=== PATIENT | female | born 1930 | race Caucasian/White ===

== ENCOUNTER → 2018-02-27 | Outpatient (CLI) | payer MEDICARE, MEDICAID ==
[~2018-02-27] MED LIST: ASPIR LOW81 MG PO; COLACE100 MG PO; FEOSOL300 MG PO; FORTAMET1000 MG PO; HUMALOG100 U/ML SC; LISINOPRIL10 MG PO; MOM30 M1 PO; MULTIVITAMIN1 CTB PO; Micro K10 MEQ PO; PRO-BIOTIC PO; PROTONIX40 MG PO; SIMVASTATIN10 MG PO; SIMVASTATIN20 MG PO; VITAMIN D1000 IU PO; Vicodin 5/325 PO
== END | disposition home or self-care (01) ==
LOC: ORTHO 02-22 05:02
DX: M21.061 Valgus deformity, not elsewhere classified, right knee (principal); M17.11 Unilateral primary osteoarthritis, right knee; D48.0 Neoplasm of uncertain behavior of bone and articular cartilage

== ENCOUNTER 2018-03-16 12:30 | Emergency (ER) | payer MEDICARE, MEDICAID ==
[~2018-03-16] VITALS: Ht 157.4 cm; Wt 77.1 kg
[2018-03-16 12:31] VITALS: BP 150/74
== END 2018-03-16 15:43 | disposition home or self-care (01) ==
LOC: ED 12:30
DX: S60.221A Contusion of right hand, initial encounter (principal); S00.81XA Abrasion of other part of head, initial encounter; S39.92XA Unspecified injury of lower back, initial encounter; M19.90 Unspecified osteoarthritis, unspecified site; M48.00 Spinal stenosis, site unspecified; Z98.890 Other specified postprocedural states; Z79.899 Other long term (current) drug therapy; Z79.82 Long term (current) use of aspirin; Z88.0 Allergy status to penicillin; Z88.2 Allergy status to sulfonamides; W19.XXXA Unspecified fall, initial encounter; Y93.89 Activity, other specified; Y92.89 Other specified places as the place of occurrence of the external cause; Y99.9 Unspecified external cause status

== ENCOUNTER 2018-06-04 11:14 | Inpatient (IN) | payer MEDICARE ==
[~2018-06-04] VITALS: Ht 157.5 cm; Wt 72.7 kg
--- NOTE | ~2018-06-04 | EKG ---
[place], [place] ELECTROCARDIOGRAM REPORT NAME: BURT ANGULO UNIT #: [id number] ROOM: 526 DOCTOR: EPIPHANY DRAFT REPORT BIRTHDATE: [birth year] [facility] Test Date: 2018-06-05 Test Time: 13:01:48 Pat Name: BURT ANGULO Department: Room: 526 1 Gender: F Editor In Chief: Sybil Araiza : 1930 Requested By: MIGUEL ANGEL GUERRA Order Number: [id number] Reading MD: Miguel Angel Guerra MD Measurements Intervals [place] Rate: 94 P: 80 MS: 194 QRS: -26 QRSD: 103 T: 69 QT: 373 QTc: 467 Interpretive Statements Sinus rhythm Borderline left axis deviation Anterior infarct, old Electronically Signed On 06-06-2018 7:55:38 PST by Miguel Angel Guerra MD CM:EKGRPT:ELECTROCARDIOGRAM REPORT [id number] MIGUEL ANGEL GUERRA MD EPIPHANY DRAFT REPORT MIGUEL ANGEL GUERRA MD
[2018-06-04 11:30] VITALS: BP 135/63
[2018-06-04 12:03] LABS: HEMATOCRIT 37.2 % (37.0-47.0); MEAN CELL VOLUME 92.1 fl (81.0-99.0); MEAN CORPUSCULAR HGB 29.7 pg (27.0-31.0); MEAN CORPUSCULAR HGB CONC 32.3 g/dl (33.0-37.0); MEAN PLATELET VOLUME 9.9 fl (9.6-12.3); PLATELET COUNT AUTOMATED 312 10*3/uL (130-400); RED BLOOD COUNT 4.04 10*6/uL (4.10-5.10); RED CELL DISTRI WIDTH 14.1 % (0-14.5); WHITE BLOOD COUNT 11.6 10*3/uL (4.8-10.8)
[2018-06-04 12:19] LABS: ALBUMIN 3.7 gm/dl (3.1-4.5); ALKALINE PHOSPHATASE 186 U/L (45-117); BUN 18 mg/dl (7-24); CHLORIDE 103 mmol/L (98-107); CREATININE 0.99 mg/dL (0.55-1.02); POTASSIUM 4.4 mmol/L (3.5-5.1); SGOT/AST 22 IU/L (3-35); SGPT/ALT 24 U/L (12-78); SODIUM 134 mmol/L (136-145); TOTAL PROTEIN 7.7 gm/dL (6.4-8.2)
[2018-06-04 12:21] LABS: ATYPICAL LYMPHS 1 % (0-0); BASOPHILS 1 % (0-1); PLATELET SUFFICIENCY NORMAL (NORMAL); TOTAL CELLS COUNTED 100 #CELLS
[2018-06-04 14:42] VITALS: BP 176/84
[2018-06-04 15:15] VITALS: BP 154/64
[2018-06-04 20:00] VITALS: BP 153/70
[2018-06-05] VITALS: BP 148/75
[2018-06-05 08:00] VITALS: BP 151/65
[2018-06-05 10:30] LABS: BILIRUBIN 1+ (NEGATIVE); BLOOD NEGATIVE (NEGATIVE); CLARITY SL CLOUDY (CLEAR); COLOR YELLOW (YELLOW); GLUCOSE NEGATIVE (NEGATIVE); KETONE 1+ (NEGATIVE); LEUKO ESTERASE NEGATIVE (NEGATIVE); NITRITE NEGATIVE (NEGATIVE); PH 5.5 (5.0-9.0); UROBILINOGEN 0.2 E.U./dl (0.2-1.0)
[2018-06-05 10:44] LABS: BACTERIA 2+; EPITHELIAL CELLS 15-20; MUCOUS 2+
[2018-06-05 12:00] VITALS: BP 142/73
[2018-06-05 16:00] VITALS: BP 154/81
[2018-06-05 20:00] VITALS: BP 150/71
[2018-06-06] VITALS: BP 140/75
[2018-06-06 08:00] VITALS: BP 142/66
[2018-06-06 12:00] VITALS: BP 136/62
[2018-06-06 16:00] VITALS: BP 168/74
[2018-06-06 20:00] VITALS: BP 151/64
[2018-06-07] VITALS: BP 123/50
[2018-06-07 07:00] LABS: BASO % 0.7 % (0.0-1.0); EOS # 0.4 10*3/uL (0.0-0.4); EOS % 7.3 % (1.0-4.0); HEMATOCRIT 33.7 % (37.0-47.0); HEMOGLOBIN 10.7 g/dl (12.0-16.0); LYMPH % 16.8 % (27.0-41.0); MEAN CELL VOLUME 91.1 fl (81.0-99.0); MEAN CORPUSCULAR HGB 28.9 pg (27.0-31.0); MEAN CORPUSCULAR HGB CONC 31.8 g/dl (33.0-37.0); MEAN PLATELET VOLUME 10.4 fl (9.6-12.3); MONO # 0.7 10*3/uL (0.1-1.0); MONO % 11.4 % (3.0-9.0); NEUT # 3.6 10*3/uL (2.3-7.9); NEUT % 63.1 % (47.0-73.0); PLATELET COUNT AUTOMATED 311 10*3/uL (130-400); WHITE BLOOD COUNT 5.8 10*3/uL (4.8-10.8)
[2018-06-07 07:23] LABS: CHLORIDE 106 mmol/L (98-107); POTASSIUM 4.1 mmol/L (3.5-5.1); SODIUM 138 mmol/L (136-145)
[2018-06-07 07:26] LABS: BUN 23 mg/dl (7-24); CREATININE 0.67 mg/dL (0.55-1.02)
[2018-06-07 08:00] VITALS: BP 153/84
[2018-06-07 12:00] VITALS: BP 135/63
[2018-06-07 16:00] VITALS: BP 185/77
[2018-06-07 18:22] VITALS: BP 144/70
[2018-06-07 20:00] VITALS: BP 175/69
[2018-06-08] VITALS: BP 162/81
[2018-06-08 08:00] VITALS: BP 159/74
[2018-06-08 12:00] VITALS: BP 176/79
[2018-06-08 16:00] VITALS: BP 152/67
== END 2018-06-08 17:32 | disposition other institution (70) | DRG 552 ==
LOC: ED 11:14 → 5E 14:29 → EDHOLD 14:29 → 5E 14:31
PROVIDERS: Emergency Medicine; Internal Medicine Nephrology
DX: M54.5 Low back pain (principal); N39.0 Urinary tract infection, site not specified; G89.29 Other chronic pain; I10 Essential (primary) hypertension; I27.20 Pulmonary hypertension, unspecified; Z66 Do not resuscitate; Z51.5 Encounter for palliative care; B96.4 Proteus (mirabilis) (morganii) as the cause of diseases classified elsewhere; E11.65 Type 2 diabetes mellitus with hyperglycemia; M40.46 Postural lordosis, lumbar region; M25.551 Pain in right hip; R26.2 Difficulty in walking, not elsewhere classified; M19.90 Unspecified osteoarthritis, unspecified site; D72.828 Other elevated white blood cell count; Z91.81 History of falling; Z88.0 Allergy status to penicillin; Z88.2 Allergy status to sulfonamides; Z79.899 Other long term (current) drug therapy

== ENCOUNTER 2019-03-22 07:33 | Inpatient (IN) | payer MEDICARE ==
[2019-03-22] VITALS (7 sets, daily range): BP systolic 106–146; BP diastolic 58–74
[~2019-03-22] VITALS: Ht 157.5 cm; Wt 69.6 kg
--- NOTE | ~2019-03-22 | EKG ---
[place], [place] ELECTROCARDIOGRAM REPORT NAME: BURT ANGULO UNIT #: [id number] ROOM: 511 DOCTOR: ARGENIS DRAFT REPORT BIRTHDATE: [birth year] [facility] Test Date: 2019-03-22 Test Time: 07:35:00 Pat Name: BURT ANGULO Department: Room: 511 Gender: F Community Engagement Specialist: : 1930 Requested By: JOSHUA JIMENES Order Number: [id number] Reading MD: Alberto Tran MD Measurements Intervals [place] Rate: 101 P: 0 AZ: 183 QRS: -23 QRSD: 127 T: 105 QT: 388 QTc: 503 Interpretive Statements Sinus tachycardia Left bundle branch block Compared to ECG 06/05/2018 13:01:48 Left bundle-branch block now present Sinus rhythm no longer present Myocardial infarct finding no longer present Electronically Signed On 03-22-2019 14:21:48 PDT by Alberto Tran MD CM:EKGRPT:ELECTROCARDIOGRAM REPORT [id number] JOSHUA JULEINANY DRAFT REPORT JOSHUA JIMENES DO
--- NOTE | ~2019-03-22 | EKG ---
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
--- NOTE | ~2019-03-22 | EKG ---
[place], [place] ELECTROCARDIOGRAM REPORT NAME: BURT ANGULO UNIT #: [id number] ROOM: 511 DOCTOR: ARGENIS DRAFT REPORT BIRTHDATE: [birth year] [facility] Test Date: 2019-03-22 Test Time: 12:10:25 Pat Name: BURT ANGULO Department: Room: 511 Gender: F Grain Blender: TL : 1930 Requested By: JOSHUA JIMENES Order Number: [id number] Reading MD: Alberto Tran MD Measurements Intervals [place] Rate: 91 P: 69 AZ: 209 QRS: -17 QRSD: 124 T: 70 QT: 400 QTc: 493 Interpretive Statements Sinus rhythm Borderline prolonged [place] interval Left bundle branch block Compared to ECG 06/05/2018 13:01:48 Left bundle-branch block now present Myocardial infarct finding no longer present Electronically Signed On 03-22-2019 14:22:44 PDT by Alberto Tran MD CM:EKGRPT:ELECTROCARDIOGRAM REPORT [id number] JOSHUA LADD DRAFT REPORT JOSHUA JIMENES DO
[2019-03-22 08:14] LABS: BASO % 0.2 % (0.0-1.0); EOS # 0.2 10*3/uL (0.0-0.4); EOS % 1.9 % (1.0-4.0); HEMATOCRIT 34.6 % (37.0-47.0); HEMOGLOBIN 11.4 g/dl (12.0-16.0); LYMPH # 0.4 10*3/uL (1.3-4.4); LYMPH % 4.5 % (27.0-41.0); MEAN CELL VOLUME 91.8 fl (81.0-99.0); MEAN CORPUSCULAR HGB 30.2 pg (27.0-31.0); MEAN CORPUSCULAR HGB CONC 32.9 g/dl (33.0-37.0); MEAN PLATELET VOLUME 10.1 fl (9.6-12.3); MONO # 0.5 10*3/uL (0.1-1.0); MONO % 5.5 % (3.0-9.0); NEUT # 7.3 10*3/uL (2.3-7.9); NEUT % 87.5 % (47.0-73.0); PLATELET COUNT AUTOMATED 246 10*3/uL (130-400); RED BLOOD COUNT 3.77 10*6/uL (4.10-5.10); RED CELL DISTRI WIDTH 14.2 % (0-14.5); WHITE BLOOD COUNT 8.4 10*3/uL (4.8-10.8)
[2019-03-22 08:29] LABS: ALBUMIN 3.5 gm/dl (3.1-4.5); ALKALINE PHOSPHATASE 67 U/L (45-117); BUN 21 mg/dl (7-24); CHLORIDE 107 mmol/L (98-107); CREATININE 0.84 mg/dL (0.55-1.02); POTASSIUM 3.7 mmol/L (3.5-5.1); SGOT/AST 9 IU/L (3-35); SGPT/ALT 12 U/L (12-78); SODIUM 138 mmol/L (136-145); TOTAL PROTEIN 6.8 gm/dL (6.4-8.2)
[2019-03-22 08:30] LABS: ACT PARTIAL THROMBO TIME 27.7 SECONDS (20.0-32.1); INTERNATIONAL NORM RATIO 0.9 (2.0-3.5); TROPONIN I < 0.015 ng/ml (<0.045)
--- NOTE | 2019-03-22 10:05 | NUR ---
PATIENT ARRIVED TO FLOOR VIA WHEELCHAIR, ON OWNER AND ROOM AIR, FROM ER ESCORTED BY RN. TRANSFERRED TO BED AMBULATORY WITH WALKER WITH ONE ASSIST. ALERT AND ORIENTED. ACCOMPAINED BY . ORIENTED TO ROOM AND CALL LIGHT. CALL LIGHT WITHIN REACH. RESIDENT PHYSICIANS AT BEDSIDE TO INTERVIEW PATIENT. WILL CONTINUE TO MONITOR,
--- NOTE | 2019-03-22 11:00 | NUR ---
DR. FELIPE NOTIFIED OF PATIENT ARRIVAL, MEDICATION RECONCILLIATION COMPLETION.
--- NOTE | 2019-03-22 11:35 | NUR ---
PHYSICAL THERAPY Nursing screen received. Physical therapy order received. Thank you! Annetta Benitez, PT,DPT
--- NOTE | 2019-03-22 12:46 | NUR ---
PHYSICAL THERAPY Physical therapy evaluation attempted, Pt refused PT services. Pt reports no PT needs at this time due to just completing 9 weeks of outpatient physical therapy. Discharge PT orders. Thank you Annetta Benitez, PT, DPT
--- NOTE | 2019-03-22 13:49 | NUR ---
INFORMED SIGNED CONSENT OBTAINED FOR LEXISCAN STRESS TEST WITH DR PARSONS. RESTING EKG LBBB SINUS TACHYCARDIA HR 100 BP 160/78. PT COMPLETED ONE MINUTE OF A LEXISCAN PROTOCOL WITH PT RECEIVING LEXISCAN 0.4MG IV OVER 10 SECONDS. PT REMAINED IN LBBB, NONDIAGNOSTIC ST CHANGES SEEN. LAST RECOVERY HR OF 112 BP 124/66. PT IN STABLE CONDITION, AWAITING NUCLEAR IMAGES.
--- NOTE | 2019-03-22 17:00 | NUR ---
FLU SHOT GIVEN AT THIS TIME IN RIGHT UPPER ARM WITHOUT INCIDENT
--- NOTE | 2019-03-22 20:00 | NUR ---
24 HOUR CHART CHECK COMPLETE.
[2019-03-23] VITALS: BP 115/53
[2019-03-23 06:53] LABS: BASO % 0.3 % (0.0-1.0); EOS # 0.1 10*3/uL (0.0-0.4); EOS % 0.6 % (1.0-4.0); HEMOGLOBIN 11.1 g/dl (12.0-16.0); LYMPH # 0.8 10*3/uL (1.3-4.4); LYMPH % 7.9 % (27.0-41.0); MEAN CELL VOLUME 90.4 fl (81.0-99.0); MEAN CORPUSCULAR HGB 29.5 pg (27.0-31.0); MEAN CORPUSCULAR HGB CONC 32.6 g/dl (33.0-37.0); MEAN PLATELET VOLUME 10.6 fl (9.6-12.3); MONO % 10.9 % (3.0-9.0); NEUT # 7.6 10*3/uL (2.3-7.9); NEUT % 80.2 % (47.0-73.0); PLATELET COUNT AUTOMATED 237 10*3/uL (130-400); RED BLOOD COUNT 3.76 10*6/uL (4.10-5.10); RED CELL DISTRI WIDTH 14.1 % (0-14.5); WHITE BLOOD COUNT 9.5 10*3/uL (4.8-10.8)
[2019-03-23 07:09] LABS: ALBUMIN 3.1 gm/dl (3.1-4.5); ALKALINE PHOSPHATASE 61 U/L (45-117); BUN 25 mg/dl (7-24); CHLORIDE 105 mmol/L (98-107); CHOLESTEROL 153 mg/dL (<200); POTASSIUM 3.6 mmol/L (3.5-5.1); SGOT/AST 7 IU/L (3-35); SGPT/ALT 10 U/L (12-78); SODIUM 138 mmol/L (136-145); TOTAL PROTEIN 6.5 gm/dL (6.4-8.2); TRIGLYCERIDES 64 mg/dl (<150); VLDL CHOLESTEROL 13 mg/dL (6-40)
[2019-03-23 07:16] LABS: CREATININE 0.81 mg/dL (0.55-1.02); FREE T4 1.19 ng/dl (0.76-1.46); HDL CHOLESTEROL 65 mg/dl (40-60); LDL CHOLESTEROL 75 mg/dL (9-159); THYROID STIM HORMONE (HS) 0.927 uIU/ml (0.358-4.75)
[2019-03-23] MEDS ORDERED: OMEPRAZOLE40 MG PO (08:54)
[2019-03-23 09:11] LABS: VITAMIN D, 25-HYDROXY 44.6 ng/mL (30-100)
== END 2019-03-23 11:20 | disposition home or self-care (01) | DRG 392 ==
LOC: ED 07:33 → EDHOLD 08:59 → 5E 09:12
PROVIDERS: Family Medicine; Internal Medicine; ADMIT Internal Medicine
PROC: 3E073KZ Introduction of Other Diagnostic Substance into Coronary Artery, Percutaneous Approach (ICD-10-PCS; principal; 2019-03-22)
PROC: 4A02XM4 Measurement of Cardiac Total Activity, External Approach (ICD-10-PCS; principal; 2019-03-22)
DX: K21.9 Gastro-esophageal reflux disease without esophagitis (principal); D64.9 Anemia, unspecified; I10 Essential (primary) hypertension; E78.5 Hyperlipidemia, unspecified; E11.65 Type 2 diabetes mellitus with hyperglycemia; Z66 Do not resuscitate; Z51.5 Encounter for palliative care; M54.9 Dorsalgia, unspecified; G89.29 Other chronic pain; Z88.0 Allergy status to penicillin; Z88.2 Allergy status to sulfonamides; Z79.82 Long term (current) use of aspirin; Z83.3 Family history of diabetes mellitus; Z80.9 Family history of malignant neoplasm, unspecified; Z79.84 Long term (current) use of oral hypoglycemic drugs

== ENCOUNTER 2019-04-22 15:42 | Inpatient (IN) | payer MEDICARE ==
[~2019-04-22] VITALS: Ht 157.4 cm; Wt 64.5 kg
--- NOTE | ~2019-04-22 | EKG ---
[place], [place] ELECTROCARDIOGRAM REPORT NAME: BURT ANGULO UNIT #: [id number] ROOM: 411 DOCTOR: ARGENIS DRAFT REPORT BIRTHDATE: [birth year] [facility] Test Date: 2019-04-22 Test Time: 17:05:26 Pat Name: BURT ANGULO Department: Room: 411 Gender: F Webbing Weaver: : 1930 Requested By: THIERRY ROBIN PA-C Order Number: [id number] Reading MD: Noreen Hawkins Measurements Intervals [place] Rate: 88 P: 67 CT: 197 QRS: -8 QRSD: 117 T: 85 QT: 429 QTc: 519 Interpretive Statements Sinus rhythm Nonspecific intraventricular conduction delay Probable anteroseptal infarct, recent Baseline wander in lead(s) I,aVR,aVL Compared to ECG 03/22/2019 16:51:04 Intraventricular conduction delay now present Myocardial infarct finding now present ST (T wave) deviation now present Atrial premature complex(es) no longer present Left bundle-branch block no longer present Electronically Signed On 04-24-2019 9:33:10 PST by Noreen Hawkins CM:EKGRPT:ELECTROCARDIOGRAM REPORT [id number] THIERRY ROBIN PA-C EPIPHANY DRAFT REPORT THIERRY ROBIN PA-C
[~2019-04-22 15:42] MED LIST changes: +OMEPRAZOLE40 MG PO
[2019-04-22 15:55] VITALS: BP 145/64
[2019-04-22 17:13] LABS: BASO % 0.5 % (0.0-1.0); EOS # 0.1 10*3/uL (0.0-0.4); EOS % 1.3 % (1.0-4.0); HEMATOCRIT 34.3 % (37.0-47.0); LYMPH # 0.6 10*3/uL (1.3-4.4); MEAN CELL VOLUME 89.6 fl (81.0-99.0); MEAN CORPUSCULAR HGB 28.7 pg (27.0-31.0); MEAN CORPUSCULAR HGB CONC 32.1 g/dl (33.0-37.0); MEAN PLATELET VOLUME 9.7 fl (9.6-12.3); MONO # 0.4 10*3/uL (0.1-1.0); MONO % 7.1 % (3.0-9.0); NEUT % 80.3 % (47.0-73.0); PLATELET COUNT AUTOMATED 359 10*3/uL (130-400); RED BLOOD COUNT 3.83 10*6/uL (4.10-5.10); RED CELL DISTRI WIDTH 13.8 % (0-14.5); WHITE BLOOD COUNT 6.2 10*3/uL (4.8-10.8)
[2019-04-22 17:19] LABS: BILIRUBIN NEGATIVE (NEGATIVE); BLOOD TRACE-INTACT (NEGATIVE); CLARITY CLEAR (CLEAR); COLOR YELLOW (YELLOW); GLUCOSE TRACE (NEGATIVE); KETONE NEGATIVE (NEGATIVE); LEUKO ESTERASE NEGATIVE (NEGATIVE); NITRITE NEGATIVE (NEGATIVE); PH 5.5 (5.0-9.0); SPECIFIC GRAVITY 1.015 (1.005-1.030); UROBILINOGEN 0.2 E.U./dl (0.2-1.0)
[2019-04-22 17:29] LABS: ALBUMIN 3.1 gm/dl (3.1-4.5); ALKALINE PHOSPHATASE 74 U/L (45-117); BUN 21 mg/dl (7-24); CHLORIDE 107 mmol/L (98-107); CREATININE 0.98 mg/dL (0.55-1.02); POTASSIUM 3.6 mmol/L (3.5-5.1); SGOT/AST 16 IU/L (3-35); SGPT/ALT 16 U/L (12-78); SODIUM 141 mmol/L (136-145)
[2019-04-22 17:30] LABS: TROPONIN I 0.026 ng/ml (<0.045)
--- NOTE | 2019-04-22 17:32 | NUR ---
LOLA ROBIN AND ANDREW SPEAR NOTIFIED OF LATIC ACID OF 2.6
[2019-04-22 17:35] LABS: BACTERIA TRACE; RBC 0-2 rbc/hpf (0-2)
[2019-04-22 21:00] VITALS: BP 150/58
--- NOTE | 2019-04-22 21:02 | NUR ---
Time: 2104 A 88 year old FEMALE admitted to 4E under services of DR. CHARLIE CONTRERAS,NIRAJ. Pt. arrived via stretcher from ER. Chief complaint: NUMBNESS. DARLEEN DRUMMOND
[2019-04-22] MEDS ORDERED: VITAMIN D32000 UNI1 PO (21:23)
[2019-04-22] MEDS ORDERED: METFORMIN HYDR500 MG PO (21:24)
[2019-04-22] MEDS ORDERED: TYLENOL EXTRA500 MG PO (21:26)
--- NOTE | 2019-04-22 21:26 | NUR ---
MED REC COMPLETED WITH PATIENT ALERT AND ORIENTED TO PERSON PLACE AND TIME
--- NOTE | 2019-04-22 21:30 | NUR ---
DR GORDON STATES HE WILL BE PUTTING ORDERS IN FOR DR GUERRA. STATES IT IS OK TO GIVE PATIENT SOMETHING TO EAT TONIGHT.
--- NOTE | 2019-04-22 22:06 | NUR ---
DR GORDON AWARE OF MED REC BEING COMPLETED AND THAT THE PATIENT HAS NO IV ACCESS
[2019-04-23] VITALS: BP 136/86
--- NOTE | 2019-04-23 06:22 | NUR ---
BURT ANGULO [id number] Please refer to the physician's history and physical for past medical history, comorbid conditions, and allergies. Diagnosis: GENERALIZED WEAKNESS Mynor Score: 15,AT RISK WOUND DESCRIPTIONS: Wound Number: 1 Location of the wound: left knee Type of wound: scab Thickness: Partial Size: 1.5cm x 1.0cm x 0.1cm Tunneling: none Undermining: none Sinus Tract: none Presence of Exudate: none Amount: None Color: Brown, red Odor: None Periwound Skin Appearance: Normal Wound edges: approximated Pain (associated with wound): none at time of assessment How does patient state this happened? pt stated she bumped her knee about a couple weeks ago but never noticed it because of her wearing slacks. Surface the patient is resting on: Isoflex SKIN PREVENTION RECOMMENDATION: 1. Pressure redistribution support surface as appropriate 2. Elevate heels 3. Remove boots/TEDS every shift and reapply 4. Head of bed 30 degrees as tolerated 5. Assess nutrition and hydration 6. Manage moisture 7. Avoid the use of containment devices while in bed 8. Use absorptive products on surfaces limit layers of linens on bed 9. Turn and reposition every 1-2 hours in bed and every 1 hour in chair as tolerated 10. Weight shifts every 15 minutes while up in chair 11. Offloading with pillows or device to keep heels elevated off bed 12. Monitor skin at least every shift 13. Inspect under medical devices twice a day WOUND TREATMENT RECOMMENDATIONS: Partial thickness guidelines: Cleanse left knee with nss and apply sureprep around the wound hydrogel to wound bed and cover with optifoam gentle.
[2019-04-23 06:36] LABS: BASO % 0.4 % (0.0-1.0); EOS # 0.2 10*3/uL (0.0-0.4); EOS % 3.3 % (1.0-4.0); HEMATOCRIT 34.9 % (37.0-47.0); HEMOGLOBIN 11.2 g/dl (12.0-16.0); LYMPH # 0.9 10*3/uL (1.3-4.4); LYMPH % 16.2 % (27.0-41.0); MEAN CELL VOLUME 90.2 fl (81.0-99.0); MEAN CORPUSCULAR HGB 28.9 pg (27.0-31.0); MEAN CORPUSCULAR HGB CONC 32.1 g/dl (33.0-37.0); MEAN PLATELET VOLUME 9.8 fl (9.6-12.3); MONO # 0.5 10*3/uL (0.1-1.0); MONO % 9.7 % (3.0-9.0); NEUT # 3.8 10*3/uL (2.3-7.9); NEUT % 69.7 % (47.0-73.0); PLATELET COUNT AUTOMATED 370 10*3/uL (130-400); RED BLOOD COUNT 3.87 10*6/uL (4.10-5.10); WHITE BLOOD COUNT 5.5 10*3/uL (4.8-10.8)
[2019-04-23 06:55] LABS: CHLORIDE 105 mmol/L (98-107); POTASSIUM 3.3 mmol/L (3.5-5.1); SODIUM 141 mmol/L (136-145)
[2019-04-23 06:56] LABS: BUN 20 mg/dl (7-24); CREATININE 0.87 mg/dL (0.55-1.02); PHOSPHOROUS 3.5 mg/dL (2.5-4.9)
[2019-04-23 08:00] VITALS: BP 156/68
--- NOTE | 2019-04-23 08:34 | NUR ---
Nursing screen received and Occupational Therapy referral received. Thank you. Sarah Gordon OTR/l
--- NOTE | 2019-04-23 08:41 | NUR ---
Dr. Vieira notified of wound care recommendations.
--- NOTE | 2019-04-23 10:30 | NUR ---
Assembler Flexible Leads in to talk to patient. Patient states lives at home with her . There are 0 steps in the home. Physician: Dr. Quinones [facility]acy: [facility] Home health services: none Patient's level of ADLs: MINIMAL ASSIST Patient has working utilities: yes DME: walker Follow-up physician's appointment after d/c: she has an appt scheduled with Dr. Posada on Thursday 04/[address] Quinones on 05/31 Does patient want to access PORTAL?: no Discharge plan discussed with patient. She lives at home with her . She is independent in her ADLs and ambulates with a walker. Discussed home health care services and short term SNF and she denies a need for either. When medically stable she will be discharged to home. Her will provide transportation on discharge. SAM CACERES
[2019-04-23 12:00] VITALS: BP 120/98
[2019-04-23 12:36] LABS: BILIRUBIN NEGATIVE (NEGATIVE); BLOOD TRACE-INTACT (NEGATIVE); CLARITY CLEAR (CLEAR); COLOR YELLOW (YELLOW); GLUCOSE 1+ (NEGATIVE); KETONE NEGATIVE (NEGATIVE); LEUKO ESTERASE NEGATIVE (NEGATIVE); NITRITE NEGATIVE (NEGATIVE); UROBILINOGEN 0.2 E.U./dl (0.2-1.0)
[2019-04-23 12:48] LABS: BACTERIA TRACE
--- NOTE | 2019-04-23 13:52 | NUR ---
Patient had visitors. OTR to recheck at a later time. Sarah Gordon OTR/L
[2019-04-23 16:00] VITALS: BP 139/57
[2019-04-23 20:00] VITALS: BP 156/69
[2019-04-24] VITALS: BP 164/86
--- NOTE | 2019-04-24 04:33 | NUR ---
Recommend follow up for wound care in outpatient setting patient refused at this time.
[2019-04-24 06:07] LABS: BASO % 0.3 % (0.0-1.0); EOS # 0.3 10*3/uL (0.0-0.4); EOS % 3.9 % (1.0-4.0); HEMOGLOBIN 11.2 g/dl (12.0-16.0); LYMPH # 1.3 10*3/uL (1.3-4.4); LYMPH % 20.7 % (27.0-41.0); MEAN CELL VOLUME 91.6 fl (81.0-99.0); MEAN CORPUSCULAR HGB 29.3 pg (27.0-31.0); MEAN PLATELET VOLUME 10.1 fl (9.6-12.3); MONO # 0.6 10*3/uL (0.1-1.0); MONO % 8.9 % (3.0-9.0); NEUT # 4.2 10*3/uL (2.3-7.9); NEUT % 65.3 % (47.0-73.0); PLATELET COUNT AUTOMATED 375 10*3/uL (130-400); RED BLOOD COUNT 3.82 10*6/uL (4.10-5.10); RED CELL DISTRI WIDTH 14.3 % (0-14.5); WHITE BLOOD COUNT 6.4 10*3/uL (4.8-10.8)
[2019-04-24 06:22] LABS: BUN 18 mg/dl (7-24); CHLORIDE 107 mmol/L (98-107)
[2019-04-24 06:33] LABS: SODIUM 139 mmol/L (136-145)
[2019-04-24 06:37] LABS: POTASSIUM 4.6 mmol/L (3.5-5.1)
[2019-04-24 08:00] VITALS: BP 159/73
--- NOTE | 2019-04-24 09:15 | NUR ---
Occupational Therapy evaluation completed on 4 with full eval to follow. Precautions include fall risk; bed alarm,wh walker use,IV UE,moderate complexity level 39552 via chart reveiw, testing and evaluation. Recommend OT per POC and SNF to enable safe return home w/ at indep level. Thank you. Deyvi Gordon OTr/L
--- NOTE | 2019-04-24 10:20 | NUR ---
Message left for , Davy, at [phone] regarding [facility] of [facility] for his for therapy. Awaiting return call.
--- NOTE | 2019-04-24 10:48 | NUR ---
PHYSICAL THERAPY Physical therapy evaluation completed, 4E. Full details to follow. Moderate complexity determined after evaluation/chart review, [address]. PT to work on strength, gait, transfers, endurance, and safety. Recommending SNF at discharge. Thank you Annetta Benitez, PT, DPT
[2019-04-24 12:00] VITALS: BP 155/77
--- NOTE | 2019-04-24 13:00 | NUR ---
Discussed with patient leaving a message for her to return my call regarding [facility]. She states he will never hear that message. She did discuss [facility] with her and he is agreeable. associate media planner notified.
--- NOTE | 2019-04-24 13:35 | NUR ---
Patient [facility] referral to [facility]; contacted facility and faxed referral. requires 3 night stay. waiting on review/acceptance.
[2019-04-24 16:00] VITALS: BP 188/91
[2019-04-24 20:00] VITALS: BP 119/42
--- NOTE | 2019-04-24 20:29 | NUR ---
Neurological: AAOX3 Respiratory: ROOM AIR, NONLABORED Breath sounds: CLEAR T/O Cough: NONE NOTED Cardiovascular: DENIES CP/PRESSURE, NO EDEMA, PPP Gastrointestinal: NORMOACTIVE X4 QUADS, DENIES N/V/D/C, SOFT/NT/ND Genito/Urinary: URGE INC AT TIMES, BEDSIDE COMMODE Musculoskeketal: AMBULATORY W/ ASSIST. SKIN INTACT. ENID MADRIGAL A
[2019-04-25] VITALS: BP 150/74
[2019-04-25 06:33] LABS: BUN 20 mg/dl (7-24); CHLORIDE 106 mmol/L (98-107); POTASSIUM 4.1 mmol/L (3.5-5.1); SODIUM 139 mmol/L (136-145)
[2019-04-25 06:34] LABS: CREATININE 0.76 mg/dL (0.55-1.02)
--- NOTE | 2019-04-25 07:25 | NUR ---
PHYSICAL THERAPY Patient was seen this am 1;1 for therapy visit and was resting supine in bed upon therapist arrival. Patient identified by name / and reports B UE numbness. Patient transfers supine to sit EOB with MIN A and needed a minute or so to collect herself secondary to c/o of mild dizziness. Patient instructed on visual fixation technique prior to completing sit to stand transfer MIN A. Patient ambulated with use of wh walker, MIN A, 35'x 1, demonstating "slouched" posture, decreased stride, and R side gait deviation. Patient also fatigues quickly while returning to supine in bed and remained with call light, tray table, bed alarm for safety. Will continue per POC as tolerated, total treatment time 14 minutes. Ankit Palomino, INSURANCE CLAIM AUDITOR
[2019-04-25 08:00] VITALS: BP 154/59
[2019-04-25 08:27] VITALS: BP 124/74
--- NOTE | 2019-04-25 09:42 | NUR ---
OT NOTE PATIENT SEEN 1:1 OT THIS DATE. PATIENT INDENTIFIED BY NAME AND DATE OF . PATIENT COMPLETED 33 MINUTES OT. PATIENT IN BED UPON ARRIVAL. COMPLETED SUPINE TO SIT EOB MIN A AND INCREASE TIME AND MIN VERBAL CUES USE OF RAIL. COMPLETED GROOMING TASK MIN A SEATED EOB. COMPLETED SIT TO STAND FROM BED CGA WITH VERBAL CUES PROPER HAND PLACEMENT. COMPLETED FUNCTIONAL AMBULATION TO BATHROOM CGA WITH OCCASIONAL MIN A DUE TO PATIENT DEMONSTRATING KNEE FLEXION AND KYPHOTIC POSTURE WITH FREQUENT VERBAL CUES TO CORRECT. COMPLETED TOILET TRANSFER MIN A USE GRABBAR EDUCATION FOR SAFETY WITH SIT TO TO STAND AND STAND TO SIT. COMPLETED HAND WASHING STANDING AT SINK CGA WITH VERBAL CUES PROPER REACHING AND BODY MECHANICS FOR FALL PREVENTION. COMPLETED FUNCTIONAL AMBULATION TO BED USE FWW CGA TO OCCASIONAL MIN A FOR INCREASE POSTURE AND SAFETY WITH TURNS. COMPETED SIT TO SUPINE BED MIN A. PATIENT IN BED WITH CALL LIGHT WITHIN REACH AND BED ALARM INTACT. CONTINUE TOWARDS PLAN OF CARE. RITA WHATLEY
--- NOTE | 2019-04-25 10:00 | NUR ---
Applications Programmer in to see patient. No new needs or request at this time. Awaiting [facility] acceptance. business planner following.
[2019-04-25 12:00] VITALS: BP 159/74
--- NOTE | 2019-04-25 12:41 | NUR ---
[facility] not [facility] for [facility] at this time, they are unable to accept this patient.
--- NOTE | 2019-04-25 13:00 | NUR ---
Discussed with patient [facility] not able to take patient. Discussed home health care services and she is agreeable. When provided with a list of agencies she chose [facility]. Dr. Posada notified. Niece at bedside and has concerns regarding patient cooking at home and having food in the house. Discussed with patient the possibility of meals on wheel by [employer]. Patient states he goes to [employer] and gets them meals and she heats them up in the oven or microwave. He also buys pot pies from [employer]. She is hesitant because he is very proud and provides food for them. When medically stable she will be discharged to home with [facility] services.
--- NOTE | 2019-04-25 13:30 | NUR ---
Social Worker Palliative Care in to see patient. at bedside. Discussed home health care and patient agreeable. When provided with a list of agencies [facility]. is not interested in Meals on Wheels at this time but will take the information in case they do need it in the future. He states he picks up their food at local restaurants and she heats it up. Information given to patient and on [employer] for meals. When medically stable she will be discharged to home. Dr. Posada is checking orthostatic blood pressure and an carotid doppler ultrasound. Patient may need medication adjustments.
--- NOTE | 2019-04-25 14:10 | NUR ---
tO RADIOLOGY FOR us CAROTID.
[2019-04-25 16:00] VITALS: BP 154/67
[2019-04-25 20:00] VITALS: BP 132/58
[2019-04-26] VITALS: BP 171/96
[2019-04-26 06:39] LABS: BASO % 0.4 % (0.0-1.0); EOS # 0.3 10*3/uL (0.0-0.4); EOS % 3.7 % (1.0-4.0); HEMATOCRIT 35.8 % (37.0-47.0); HEMOGLOBIN 11.3 g/dl (12.0-16.0); LYMPH # 1.2 10*3/uL (1.3-4.4); LYMPH % 16.4 % (27.0-41.0); MEAN CELL VOLUME 91.3 fl (81.0-99.0); MEAN CORPUSCULAR HGB 28.8 pg (27.0-31.0); MEAN CORPUSCULAR HGB CONC 31.6 g/dl (33.0-37.0); MEAN PLATELET VOLUME 9.9 fl (9.6-12.3); MONO # 0.5 10*3/uL (0.1-1.0); MONO % 7.2 % (3.0-9.0); NEUT # 5.2 10*3/uL (2.3-7.9); PLATELET COUNT AUTOMATED 384 10*3/uL (130-400); RED BLOOD COUNT 3.92 10*6/uL (4.10-5.10); RED CELL DISTRI WIDTH 14.3 % (0-14.5); WHITE BLOOD COUNT 7.2 10*3/uL (4.8-10.8)
[2019-04-26 06:49] LABS: BUN 25 mg/dl (7-24); CHLORIDE 107 mmol/L (98-107); CREATININE 0.78 mg/dL (0.55-1.02); SODIUM 138 mmol/L (136-145)
--- NOTE | 2019-04-26 07:40 | NUR ---
PHYSICAL THERAPY Patient seen this am 1:1 for therapy visit and was supine in bed upon therapist arrival. Patient identified by name / and experienced several bouts of tearful conversation when talking about her . Patient reports no new c/o's and transfers supine to sit EOB with MIN A, then sit to stand CGA x 1. Patient ambulates with use of wh walker, 25'x 2 to bathroom, CGA, demonstrating very slow cadenc, increased kyphotic posture and decreased stride. Patient returned to supine in bed with mild fatigue and remained with call light, tray table, telephone and bed alarm. Will continue per POC as tolerated, total treatment time 15 minutes. Ankit Palomino, [employer] MAINFRAME SYSTEMS PROGRAMMER
--- NOTE | 2019-04-26 07:45 | NUR ---
OT NOTE Pt was seen this A.M. 1:1 for 15 minute OT session. Upon arrival pt was sitting upright on the EOB. Pt identified by name and . Pt was very tearful at this time stating she was worried about her and also presented with confusion as indicated by being disoriented to place and time. Pt completed sit to stand transfer from bed level with CGA and use of w/w for UE support. Functional mobility completed into the bathroom with CGA and use of w/w. There she transferred on to standard commode with [place] for safety with alignment. Pt doffed and donned underpants and gown with [place] while seated due to assist needed for sequencing. Toilet hygiene completed with SBA while seated. Pt then stood sink side while washing her hands with CGA for safety. Functional mobility then completed back to the EOB where she transferred sit to supine with SBA. There she was left with call light in hand, tray table in place, and bed alarm activated for safety. Continue with rec D/C plan to SNF. STEPHANIE Ordoñez/Larry
[2019-04-26 08:00] VITALS: BP 151/68
--- NOTE | 2019-04-26 08:10 | NUR ---
PATIENT ASSESSMENT COMPLETED AT THIS TIME WITHOUT INCIDENT. DENIES ANY CHEST PAIN OR SHORTNESS OF BREATH AT THIS TIME, ON ROOM AIR. MEDICATIONS GIVEN AND TAKEN WITHOUT INCIDENT. PATIENT WAS EATING CEREAL WITH THIN MILK FOR BREAKFAST AND BEGAN COUGHING AND CHOKING, SMALL EMESIS OF MASTICATED CEREAL AND MILK, PATIENT WAS ABLE TO CLEAR HER OWN AIRWAY WITHOUT ASSISTANCE. VOICE, UPPER AIRWAY AND LUNGS CLEAR AFTER INCIDENT. OBSERVED PATIENT FOR 10 MINUTES SHE COMPLETED HER BREAKFAST WITHOUT ANY FURTHER INCIDENT. VOICE, UPPER AIRWAY AND LUNGS REMAINED CLEAR AFTERWARD. WILL CONTINUE TO MONTIOR. PHYSICIAN NOTIFIED. NO ORDERS AT THIS TIME, CALL LIGHT WITHIN REACH, WILL CONTINUE TO MONITOR,.
--- NOTE | 2019-04-26 08:11 | NUR ---
Faxed new home health order to [facility]
--- NOTE | 2019-04-26 09:00 | NUR ---
Generator Mechanic in to see patient. No new needs or request at this time. When medically stable she will be discharged to home with [facility] services and information on [employer] for meals on wheels for home meals if she and her decide they want to go that route.
--- NOTE | 2019-04-26 09:46 | NUR ---
24 HOUR CHART CHECK COMPLETE
--- NOTE | 2019-04-26 11:50 | NUR ---
PER DR. Santana NUNES ORDERS ORTHOSTATIC BLOOD PRESSURES REDONE. SUPINE: 158/97 PULSE: 114 SITTIN/69 PULSE: 113 STANDIN/62 PULSE: 112 DR. Santana NUNES NOTIFIED AT 1200, NO ORDERS RECEIVED.
[2019-04-26 12:00] VITALS: BP 151/68
[2019-04-26] MEDS ORDERED: MAG DELAY64 MG PO (14:25)
[2019-04-26] MEDS ORDERED: NORVASC5 MG PO (14:26)
--- NOTE | 2019-04-26 14:34 | NUR ---
Nutritonal Support Services Note: Pt has a scab to left knee after previous fall at home. Appetite is good for meals, she is eating 100%. She receives a regular diet as ordered. Ht.5'2 Wt. 142# IBW 110#. Will follow as needed. No nutrition intervention needed at this time. Kristin Euceda Rdn Ld
--- NOTE | 2019-04-26 15:00 | NUR ---
DISCHARGE INSTRUCTIONS AND INFORMATION REVIEWED WITH PATIENT AND AT THIS TIME. ALL QUESTIONS ANSWERED TO THEIR SATISFACTION. IV SALINE LOCK REMOVED, NO BLEEDING OR HEMATOMA NOTED AT THIS TIME. PATIENT ASSISTED TO WHEELCHAIR AND ESCORTED TO FRONT ENTRANCE BY PATIENT LAP HAND TOOL AND .
--- NOTE | 2019-04-26 15:13 | NUR ---
PHYSICAL THERAPY CO-SIGN I approve of the Physical Therapy notes written above. Isabel Selby PT
--- NOTE | 2019-04-30 07:54 | NUR ---
OCCUPATIONAL THERAPY CO-SIGN I approve of the Occupational Therapy notes written above. VARUN VILLALOBOS OTR/Larry
== END 2019-04-26 15:00 | disposition home health service (06) | DRG 641 ==
LOC: ED 15:42 → 4E 19:07 → EDHOLD 19:07 → 4E 20:21
PROVIDERS: Physician Assistant; Student in an Organized Health Care Education/Training Program; ADMIT Internal Medicine
DX: E87.6 Hypokalemia (principal); R53.1 Weakness; E83.42 Hypomagnesemia; I10 Essential (primary) hypertension; K59.04 Chronic idiopathic constipation; E11.65 Type 2 diabetes mellitus with hyperglycemia; E78.5 Hyperlipidemia, unspecified; K21.9 Gastro-esophageal reflux disease without esophagitis; Z88.0 Allergy status to penicillin; Z88.2 Allergy status to sulfonamides; Z98.891 History of uterine scar from previous surgery; Z84.89 Family history of other specified conditions; Z83.3 Family history of diabetes mellitus; Z71.6 Tobacco abuse counseling; Z79.4 Long term (current) use of insulin

== ENCOUNTER → 2019-04-29 | Outpatient (CLI) | payer MEDICARE ==
[~2019-04-29] MED LIST changes: +MAG DELAY64 MG PO; +METFORMIN HYDR500 MG PO; +NORVASC5 MG PO; +TYLENOL EXTRA500 MG PO; +VITAMIN D32000 UNI1 PO
== END | disposition home or self-care (01) ==
LOC: LAB 10:10
DX: E83.42 Hypomagnesemia (principal)

== ENCOUNTER → 2019-05-29 | Outpatient (CLI) | payer MEDICARE ==
[2019-05-29 10:11] LABS: BUN 21 mg/dl (7-24); CHLORIDE 106 mmol/L (98-107); POTASSIUM 4.3 mmol/L (3.5-5.1); SODIUM 140 mmol/L (136-145)
== END | disposition home or self-care (01) ==
LOC: LAB 09:18
PROVIDERS: Family Medicine
DX: E83.42 Hypomagnesemia (principal)

== ENCOUNTER 2020-01-03 15:20 | Inpatient (IN) | payer MEDICARE, MEDICAID ==
[~2020-01-03] VITALS: Ht 157.5 cm; Wt 64.5 kg
[2020-01-03 15:21] VITALS: BP 168/84
[2020-01-03 16:01] LABS: BASO % 0.5 % (0.0-1.0); EOS # 0.2 10*3/uL (0.0-0.4); HEMATOCRIT 34.6 % (37.0-47.0); LYMPH # 0.7 10*3/uL (1.3-4.4); LYMPH % 11.9 % (27.0-41.0); MEAN CELL VOLUME 90.8 fl (81.0-99.0); MEAN CORPUSCULAR HGB 29.1 pg (27.0-31.0); MEAN CORPUSCULAR HGB CONC 32.1 g/dl (33.0-37.0); MEAN PLATELET VOLUME 9.9 fl (9.6-12.3); MONO # 0.5 10*3/uL (0.1-1.0); MONO % 8.2 % (3.0-9.0); NEUT # 4.3 10*3/uL (2.3-7.9); NEUT % 76.2 % (47.0-73.0); PLATELET COUNT AUTOMATED 292 10*3/uL (130-400); RED BLOOD COUNT 3.81 10*6/uL (4.10-5.10); RED CELL DISTRI WIDTH 14.6 % (0-14.5); WHITE BLOOD COUNT 5.6 10*3/uL (4.8-10.8)
[2020-01-03 16:18] LABS: ALBUMIN 3.9 gm/dl (3.1-4.5); ALKALINE PHOSPHATASE 73 U/L (45-117); BUN 26 mg/dl (7-24); CHLORIDE 107 mmol/L (98-107); CREATININE 0.88 mg/dL (0.55-1.02); POTASSIUM 4.4 mmol/L (3.5-5.1); SGOT/AST 16 IU/L (3-35); SGPT/ALT 16 U/L (12-78); SODIUM 137 mmol/L (136-145); TOTAL PROTEIN 7.6 gm/dL (6.4-8.2)
[2020-01-03 16:45] LABS: BILIRUBIN 1+ (NEGATIVE); BLOOD 1+ (NEGATIVE); CLARITY SL CLOUDY (CLEAR); COLOR YELLOW (YELLOW); GLUCOSE NEGATIVE (NEGATIVE); KETONE NEGATIVE (NEGATIVE); LEUKO ESTERASE 2+ (NEGATIVE); NITRITE NEGATIVE (NEGATIVE); SPECIFIC GRAVITY 1.015 (1.005-1.030); UROBILINOGEN 0.2 E.U./dl (0.2-1.0)
[2020-01-03 16:49] LABS: RBC 31-40 rbc/hpf (0-2); WBC 41-50 wbc/hpf (0-5)
[2020-01-03 16:50] LABS: BACTERIA 4+
[2020-01-03 18:00] VITALS: BP 159/79
[2020-01-03 19:28] VITALS: BP 154/78
[2020-01-03 20:15] VITALS: BP 178/84
--- NOTE | 2020-01-03 20:15 | NUR ---
A 89, admitted to , under the services of NIRAJ Osborne MD with a diagnosis of UTI, UNABLE TO AMBULATE. Chief complaint is UTI, RIGHT KNEE PAIN. Patient arrived via stretcher from ER. . Initial assessment completed. Vital signs taken and recorded. NIRAJ OSBORNE MD notified of admission to the unit. Orders received. See assessment for past medical history, medications and allergies. Patient and/or family oriented to [facility]. visitation policy reviewed. Clothing/patient valuable form completed. AYSHA TRAVIS RN
--- NOTE | 2020-01-03 20:30 | NUR ---
DR. GUERRA NOTIFIED AT THIS TIME OF PATIENT ADMISSION. HOME MEDICATIONS REVIEWED AND REORDERED. NEW ORDERS RECEIVED AT THIS TIME SEE EMAR AND ORDERS.
[2020-01-04] VITALS: BP 131/98
--- NOTE | 2020-01-04 01:31 | NUR ---
24 HOUR CHART CHECK COMPLETE
[2020-01-04 08:00] VITALS: BP 141/76
--- NOTE | 2020-01-04 08:02 | NUR ---
ABNER in to talk to patient. Patient states lives at home with son staying with her currently. There are 0 steps in the home. Physician: Dr Quinones Pharmacy: [facility] health services: no Patient's level of ADLs: MINIMAL ASSIST Patient has working utilities: yes DME: walker Follow-up physician's appointment after d/c: will need scheduled Does patient want to access PORTAL?: no Discharge plan: Patient resides at home alone but her son Ambrocio has been staying with her. Pt's suddenly in 11/05 after 67 yrs of marriage. Pt states that she has had recent falls and feels weak. Discussed services. Pt stated that she is in the process of being accepted for [facility] Medicaid with the plan to receive [employer] services. However, she has been told that services most likely will not begin until 03/08. Discussed SNF. Pt has been at [facility] in the past and would be willing to return there for SNF. Await PT/OT evals. . KAYLENE IVEY
[2020-01-04 13:00] VITALS: BP 139/82
[2020-01-04 16:00] VITALS: BP 135/60
--- NOTE | 2020-01-04 16:40 | NUR ---
Notified pt of new orders for consults for Dr. Park due to depression, order for celexa and consult for surgery. 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 Pt states she feels a flat of skin there when he wipes but it is not painful and does not bother her.
--- NOTE | 2020-01-04 17:10 | NUR ---
Notified Dr. Posada of comments pt made about hemmorroids, states to dc surgery consult.
--- NOTE | 2020-01-04 17:34 | NUR ---
[facility] notified of Dr. Park consult for depression. Spoke with Araceli
[2020-01-04 20:00] VITALS: BP 158/74
--- NOTE | 2020-01-04 20:30 | NUR ---
IN TO ASSESS PATIENT AT THIS TIME. PT BECOMES TEARFUL EASILY. RESPIRATIONS EASY AND NONLABORED. DENIES ANY PAIN AT REST, BUT EXPERIENCES DISCOMFORT TO RIGHT KNEE WHEN PRESSURE IS APPLIED. DENIES NEED FOR PAIN MEDICATION. PATIENT DENIES PAIN ON URINATION BUT STATES SHE IS HAVING FREQUENCY AND URGENCY. BRIEF INTACT, DUE TO STRESS INCONTINENCE. BED ALARM ACTIVATED DUE TO HX OF FALLS. BED LOCKED IN THE LOWEST POSITION. CALL LIGHT IN REACH. WILL MONITOR.
[2020-01-05] VITALS: BP 165/70
--- NOTE | 2020-01-05 01:17 | NUR ---
IV discontinued. Pt accidently removed. Site asymptomatic. Pressure applied. Sterile dressing applied. MARGARET CORBETT
--- NOTE | 2020-01-05 01:17 | NUR ---
IV started right wrist with #22 protective cath after 1 attempts. Site prepped with Chloroprep. Sterile dressing applied. Patient tolerated procedure well. IV infusing at 80 cc/hr. MARGARET CORBETT
[2020-01-05 08:00] VITALS: BP 158/78
--- NOTE | 2020-01-05 08:22 | NUR ---
pt sitting up in bed/; eating breakfast. no distress noted will monitor
[2020-01-05 12:00] VITALS: BP 151/96
[2020-01-05 16:00] VITALS: BP 153/59
[2020-01-05 20:00] VITALS: BP 175/78
--- NOTE | 2020-01-05 21:00 | NUR ---
RESTLESS, CLIMBING OOB. REPOSITIONED FOR COMFORT. RESPIRATIONS EASY. LUNGS DIMINISHED, CLEAR. PULSE OX 100% RA. IV FLUIDS INFUSING PER ORDER. CALL LIGHT WITHIN REACH. NO VOICED COMPLAINTS. BED ALARM MAINTAINED FOR SAFETY
--- NOTE | 2020-01-05 21:15 | NUR ---
24 HR chart check completed.
--- NOTE | 2020-01-05 22:00 | NUR ---
BSG 155, DECLINED INSULIN COVERAGE STATING SHE DOES NOT TAKE AT HOME. WILL RECHECK IN AM
[2020-01-06] VITALS: BP 167/78
--- NOTE | 2020-01-06 | NUR ---
SLEEPING. NO DISTRESS NOTED. RESPIRATIONS EASY. VSS. IV FLUIDS MAINTAINED. CALL LIGHT WITHIN REACH
--- NOTE | 2020-01-06 06:00 | NUR ---
RESTED THROUGHOUT NIGHT WITH NO DISTRESS NOTED. RESPIRATIONS EASY. IV FLUIDS MAINTAINED. CALL LIGHT WITHIN REACH. NO VOICED COMPLAINTS THIS SHIFT
[2020-01-06 07:27] LABS: CREATININE 0.79 mg/dL (0.55-1.02)
--- NOTE | 2020-01-06 07:40 | NUR ---
RANGE MECHANIC RECEIVED SNF CONSULT FOR [facility]. PATIENT WILL NEED COVID TEST AND PT EVAL TO COMPLETE REFERRAL.
[2020-01-06 08:00] VITALS: BP 170/85
--- NOTE | 2020-01-06 08:04 | NUR ---
PT RESTING IN BED. NO DISTRESS NOTED. WILL MONITOR
--- NOTE | 2020-01-06 08:14 | NUR ---
Nursing screen received and chart reviewed. Patient admitted for UTI, generalized weakness, and unable to ambulate. If patient has a decline in ADLs, transfers, or functional mobility, please send OT orders. Thank you. Umm Duggan OTR/L
--- NOTE | 2020-01-06 08:37 | NUR ---
PHYSICAL THERAPY Screen received as well as PT eval will follow thank you. Isabel Selby PT
--- NOTE | 2020-01-06 09:00 | NUR ---
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 She is currently not in her room. extrusion utility worker following for referral to [facility].
[2020-01-06 09:46] LABS: BASO % 0.6 % (0.0-1.0); EOS # 0.4 10*3/uL (0.0-0.4); EOS % 7.4 % (1.0-4.0); HEMATOCRIT 39.3 % (37.0-47.0); LYMPH # 0.7 10*3/uL (1.3-4.4); LYMPH % 12.7 % (27.0-41.0); MEAN CELL VOLUME 91.6 fl (81.0-99.0); MEAN CORPUSCULAR HGB 28.9 pg (27.0-31.0); MEAN CORPUSCULAR HGB CONC 31.6 g/dl (33.0-37.0); MEAN PLATELET VOLUME 9.8 fl (9.6-12.3); MONO # 0.6 10*3/uL (0.1-1.0); NEUT # 3.7 10*3/uL (2.3-7.9); NEUT % 68.1 % (47.0-73.0); PLATELET COUNT AUTOMATED 292 10*3/uL (130-400); RED BLOOD COUNT 4.29 10*6/uL (4.10-5.10); RED CELL DISTRI WIDTH 14.6 % (0-14.5); WHITE BLOOD COUNT 5.4 10*3/uL (4.8-10.8)
--- NOTE | 2020-01-06 11:34 | NUR ---
Notified Dr. Posada patient can be discharged to [facility] when medically stable.
--- NOTE | 2020-01-06 11:50 | NUR ---
Physical Therapy evaluation completed on 5th floor with full evaluation to follow. Recommend physical therapy per plan of care and SNF upon discharge. Thank you for this referral. Isabel Selby PT
--- NOTE | 2020-01-06 11:57 | NUR ---
CALLED AND SPOKE WITH DR GUERRA REGARDING IV OUT AND UNABLE TO GET ANOTHER IV IN NEW ORDERS RECIEVED
[2020-01-06 12:00] VITALS: BP 161/77
--- NOTE | 2020-01-06 14:51 | NUR ---
Mannequin Coloring Artist in to talk to patient. Patient states lives at home with her son. There are 1 steps in the home. Physician: Dr. Quinones Pharmacy: [facility] services: none Patient's level of ADLs: MINIMAL ASSIST Patient has working utilities: yes DME: walker Follow-up physician's appointment after d/c: she prefers to make her own follow up appt after discharge Does patient want to access PORTAL?: no Discharge plan discussed with patient. She lives at home with her son. She needs minimal assistance with her ADLs and ambulates with a walker. Discussed short term rehab and she is agreeable. She wants to go to [facility] as she has been there in the past and likes it. She is tearful about her passing away. She has her meals delivered M-F from [employer]. She states her son, Ambrocio, may be able to provide transportation on discharge. SAM CACERES
[2020-01-06 16:00] VITALS: BP 171/73
--- NOTE | 2020-01-06 17:43 | NUR ---
DR REBOLLEDO NOTIFIED OF CONSULT NEW ORDER RECIEVED
--- NOTE | 2020-01-06 17:47 | NUR ---
CALLED AND SPOKE WITH DR GUERRA REGARDING PT BP NEW ORDER RECIEVED
[2020-01-06 20:00] VITALS: BP 123/56
--- NOTE | 2020-01-06 21:00 | NUR ---
PATIENT RESTING IN BED. AWAKE AND ALERT. VOICES NO COMPLAINTS. RESPIRATIONS EASY, NON LABORED. BED IN LOWEST POSITION,CALL LIGHT WITHIN REACH, BED ALARM ON. WILL CONTINUE TO MONITOR.
[2020-01-07] VITALS: BP 130/59
--- NOTE | 2020-01-07 06:53 | NUR ---
NEW IV STARTED IN RIGHT AC.
[2020-01-07 08:00] VITALS: BP 156/76
--- NOTE | 2020-01-07 08:04 | NUR ---
PT RESTING IN BED. NO DISTRESS NOTED. WILL MONITOR
--- NOTE | 2020-01-07 08:35 | NUR ---
PHYSICAL THERAPY Patient seen this am 1:1 for therapy visit and was sitting in transport w/c upon return from medical procedure. Patient identified by name / and was very pleasant, voicing no new c/o's at this time. [facility] staff member present for observation this morning as patient transfers sit to stand MIN A x 1, with use of walker standing support. Patient ambulates 25'x 1, wh walker, MIN A, while demonstating intial retrograde posture, needing v/c to improve walker safety / navigation. Patient stated she fell at home and is still a little nervous walking, however demonstrated increased confidence returning to bedside chair. Patient remained in chair with call light, tray table, telephone and body alarm for safety. Will continue per POC as tolerated, total treatment time 13 minutes. Ankit Palomino, WINE CELLAR WORKER
[2020-01-07] MEDS ORDERED: MIRTAZAPINE15 M2 PO (11:40)
[2020-01-07] MEDS ORDERED: PLAVIX75 M1 PO (11:40)
[2020-01-07] MEDS ORDERED: AMLODIPINE BESYL5 MG PO (11:40)
[2020-01-07] MEDS ORDERED: LEVOFLOXACIN750 M2 PO (11:40)
[2020-01-07 12:00] VITALS: BP 148/70
--- NOTE | 2020-01-07 12:04 | NUR ---
DR REBOLLEDO COMING IN TO DO CENTRAL LINE ON PT FOR CTA TESTING . PT AGREES NOTIFIED DR GUERRA. DC CANCELLED FOR TODAY
--- NOTE | 2020-01-07 12:33 | NUR ---
Patient is not able to be discharged to [facility] until COVID results return.
--- NOTE | 2020-01-07 12:36 | NUR ---
Notified Dr. Posada pending COVID results for discharge to [facility]. Organic Gardening Teacher and social sciences department chair notified.
[2020-01-07 16:00] VITALS: BP 140/97; BP 142/82
[2020-01-07 20:00] VITALS: BP 118/62
--- NOTE | 2020-01-07 20:00 | NUR ---
PATIENT AWAKE ALERT. SITITNG UP IN BED. VOICES NO COMPLAINTS AT THIS TIME. RESPIRATIONS EASY, NON LABORED. BED IN LOWEST POSITION,CALL LIGHT WITHIN REACH. BED ALARM ON.
[2020-01-08] VITALS: BP 107/72
--- NOTE | 2020-01-08 03:00 | NUR ---
PATIENT UP TO BSC WITH 2ASSIST. PATIENT ASSISTED BACK INTO BED. VOICES NO COMPLAINTS. RESPIRATIONS EASY, NON LABORED. BED IN LOWEST POSITION,CALL LIGHT WITHIN REACH. BED ALARM ON. WILL CONTINUE TO MONITOR.
--- NOTE | 2020-01-08 04:10 | NUR ---
24 HR chart check completed.
--- NOTE | 2020-01-08 07:30 | NUR ---
PT RESTING IN BED. VOICES NO CONCERNS AT THIS TIME. RESPS EASY AND NON LABORED. NO S/S OF DISTRESS NOTED. VSS. WHITE BOARD UPDATED. POC DISCUSSED W PT. A/O, PERIODS OF CONFUSION/FORGETFUL-EASILY REORIENTED. WILL CONTINUE TO MONITOR. CALL LIGHT WITHIN REACH. BED ALARM ON.
[2020-01-08 08:00] VITALS: BP 157/76
--- NOTE | 2020-01-08 08:38 | NUR ---
EMAIL MARKETING PROCESSOR FAXED UPDATES TO [facility].
--- NOTE | 2020-01-08 10:25 | NUR ---
PHYSICAL THERAPY Patient seen this am 1:1 for therapy visit and was resting supine in bed upon therapist arrival. Patient identified by name / and was quite pleasant this morning, voicing no new c/o's. Patient transfers supine to sit EOB with MIN A and needed a minute or so to collect herself prior to completing sit to stand transfer MIN A x 1, use of wh walker standing support. Patient ambulated CGA, 30'x 1, wh walker, demonstrating very slow, cautious gait pattern and needed v/c for improved safe walker navigation ad radha in room. Patient returned to bedside chair with mild fatigue and following brief seated rest break was able to complete seated B LE therx, all planes x 10 reps each. Patient remained in bedside chair with call light, tray table, telephone and body alarm for safety. Will continue per POC as tolerated, total treatment time 17 minutes. Ankit Palomino, BAND LEADER
--- NOTE | 2020-01-08 10:40 | NUR ---
Discussed discharge planning with Dr. Posada and family not requesting further intervention for carotid stenosis at this time per Dr. Cooney's progress noted. When medically stable and COVID results are in she can be discharged to [facility]. utility worker production following.
[2020-01-08 11:00] LABS: CREATININE 1.05 mg/dL (0.55-1.02); POTASSIUM 4.4 mmol/L (3.5-5.1)
[2020-01-08 12:00] VITALS: BP 135/65
--- NOTE | 2020-01-08 12:28 | NUR ---
Nutritional Support Services Note: Pt is ordered a regular diet, she is eating 100% of all meals. Dx of sepsis. Continue to encourage 100% po intake of all meals. Will provide pt with a night snack. No other nutrition intervention needed at this time. Will follow as needed. Kristin Euceda Rdn Ld
--- NOTE | 2020-01-08 14:50 | NUR ---
PT RESTING IN CHAIR. VOICES NO CONCERNS AT THIS TIME. RESPS EASY AND NON LABORED. NO S/S OF DISTRESS NOTED. VSS. WILL CONTINUE TO MONITOR. CALL LIGHT WITHIN REACH. BODY ALARM INTACT
[2020-01-08 16:00] VITALS: BP 140/66
[2020-01-08 20:00] VITALS: BP 121/59
--- NOTE | 2020-01-08 21:54 | NUR ---
PATIENT RESTING IN BED, ALERTX3. VOICES NO COMPLAINTS. RESPIRATIONS EASY, NON LABORED. NO SIGNS OF DISTRESS. BED IN LOWEST POSITION,CALL LIGHT WITHIN REACH. BED ALARM ON. WILL CONTINUE TO MONITOR.
[2020-01-09] VITALS: BP 137/58
--- NOTE | 2020-01-09 04:00 | NUR ---
PATIENT SLEEPING. NO SIGNS OF DISTRESS. RESPIRATIONS EASY,NON LABORED. WILL CONTINUE TO MONITOR.
--- NOTE | 2020-01-09 07:05 | NUR ---
COVID RESULT HAS RETURNED. PATIENT CAN GO TO [facility] TODAY IF MEDICALLY STABLE.
--- NOTE | 2020-01-09 07:54 | NUR ---
FOREIGN LANGUAGES DEPARTMENT CHAIR FAXED UPDATES TO [facility].
[2020-01-09 08:00] VITALS: BP 148/76
--- NOTE | 2020-01-09 08:56 | NUR ---
Notified Dr. Madrid patient's COVID test result was negative and she can be discharged to [facility] when medically stable.
--- NOTE | 2020-01-09 08:56 | NUR ---
Notified Dr. Posada patient's COVID test result was negative and she can be discharged to [facility] when medically stable.
--- NOTE | 2020-01-09 09:30 | NUR ---
NOTIFIED DR GUERRA PT COVID RESULT WAS NEGATIVE. PER DR GUERRA, DR FELIPE WILL ROUND AND D/C PT SHENA.CASE MGMT AWARE.
--- NOTE | 2020-01-09 11:30 | NUR ---
Discussed discharge planning with Dr. Vera. Notified patient's COVID test result was negative and she can be discharged to [facility] when medically stable. Plan is to discharge patient today to [facility]. dairy machine operator farmworker following.
[2020-01-09 12:00] VITALS: BP 120/54
--- NOTE | 2020-01-09 13:15 | NUR ---
ELECTRIC CRANE OPERATOR NOTIFIED OF PATIENT DISCHARGE. ELECTRIC CRANE OPERATOR SPOKE WITH ANDREW HARRIS. ELECTRIC CRANE OPERATOR ARRANGED FOR A 3 PM TRANSPORT WITH [facility]. ELECTRIC CRANE OPERATOR NOTIFIED [facility], AND NANDA SHARMA OF DISCHARGE/TRANSPORT TIME.
--- NOTE | 2020-01-09 15:20 | NUR ---
Discharge instructions reviewed with patient/family. Patient receptive and verbalizes understanding. Follow-up care arranged. Written instructions given to patient/family. AYSHA PALACIO
--- NOTE | 2020-01-09 15:35 | NUR ---
REPORT CALLED TO JUAN AT [facility].
--- NOTE | 2020-01-10 07:51 | NUR ---
PHYSICAL THERAPY CO-SIGN I approve of the Physical Therapy notes written above. Isabel Selby PT
== END 2020-01-09 16:09 | disposition other institution (70) | DRG 690 ==
LOC: ED 15:20 → EDHOLD 17:51 → 5E 17:51
PROVIDERS: Emergency Medicine; ADMIT Internal Medicine
DX: N30.01 Acute cystitis with hematuria (principal); R26.2 Difficulty in walking, not elsewhere classified; K21.9 Gastro-esophageal reflux disease without esophagitis; F32.9 Major depressive disorder, single episode, unspecified; F43.21 Adjustment disorder with depressed mood; K64.9 Unspecified hemorrhoids; N18.3 Chronic kidney disease, stage 3 (moderate); I65.22 Occlusion and stenosis of left carotid artery; B96.1 Klebsiella pneumoniae [K. pneumoniae] as the cause of diseases classified elsewhere; Z66 Do not resuscitate; Z51.5 Encounter for palliative care; I12.9 Hypertensive chronic kidney disease with stage 1 through stage 4 chronic kidney disease, or unspecified chronic kidney disease; M17.11 Unilateral primary osteoarthritis, right knee; E11.22 Type 2 diabetes mellitus with diabetic chronic kidney disease; Z03.818 Encounter for observation for suspected exposure to other biological agents ruled out; Z88.0 Allergy status to penicillin; Z88.2 Allergy status to sulfonamides; Z80.9 Family history of malignant neoplasm, unspecified; Z83.3 Family history of diabetes mellitus; Z81.8 Family history of other mental and behavioral disorders; Z79.82 Long term (current) use of aspirin; Z79.84 Long term (current) use of oral hypoglycemic drugs; Z79.899 Other long term (current) drug therapy

== ENCOUNTER 2020-08-13 17:52 | Emergency (ER) | payer OTHER ==
[~2020-08-13] VITALS: Ht 157.4 cm; Wt 68.5 kg
[~2020-08-13 17:52] MED LIST changes: +AMLODIPINE BESYL5 MG PO; +LEVOFLOXACIN750 M2 PO; +MIRTAZAPINE15 M2 PO; +PLAVIX75 M1 PO
[2020-08-13 18:11] VITALS: BP 131/60
[2020-08-13 21:23] LABS: BILIRUBIN Negative (Negative); BLOOD Negative (Negative); CLARITY Clear (Clear); COLOR Yellow (Yellow); GLUCOSE Negative (Negative); KETONE Negative (Negative); LEUKO ESTERASE 2+ (Negative); NITRITE Positive (Negative); UROBILINOGEN 0.2 E.U./dl (0.0-1.0)
[2020-08-13 21:39] LABS: BACTERIA 3+; EPITHELIAL CELLS 0-2; RBC 0-2 rbc/hpf (0-2)
[2020-08-13] MEDS ORDERED: MACROBID100 M1 PO ×2 (21:43)
== END 2020-08-13 22:25 | disposition home or self-care (01) ==
LOC: ED 17:52
PROVIDERS: Physician Assistant
DX: S30.0XXA Contusion of lower back and pelvis, initial encounter (principal); N39.0 Urinary tract infection, site not specified; I10 Essential (primary) hypertension; E11.9 Type 2 diabetes mellitus without complications; E78.00 Pure hypercholesterolemia, unspecified; Z88.0 Allergy status to penicillin; Z88.2 Allergy status to sulfonamides; Z79.899 Other long term (current) drug therapy; Z79.82 Long term (current) use of aspirin; Z79.84 Long term (current) use of oral hypoglycemic drugs; Z98.890 Other specified postprocedural states; W19.XXXA Unspecified fall, initial encounter; Y93.89 Activity, other specified; Y92.89 Other specified places as the place of occurrence of the external cause; Y99.8 Other external cause status

== ENCOUNTER 2020-09-09 05:47 | Inpatient (IN) | payer OTHER ==
[~2020-09-09] VITALS: Ht 157.4 cm; Wt 77.6 kg
[2020-09-09] VITALS (7 sets, daily range): BP systolic 103–166; BP diastolic 50–68
[~2020-09-09 05:47] MED LIST changes: +MACROBID100 M1 PO
[2020-09-09 06:31] LABS: BILIRUBIN Negative (Negative); BLOOD 1+ (Negative); CLARITY Clear (Clear); COLOR Yellow (Yellow); GLUCOSE Negative (Negative); KETONE 1+ (Negative); LEUKO ESTERASE 2+ (Negative); NITRITE Negative (Negative); PH 6.5 (4.5-8.0); UROBILINOGEN 0.2 E.U./dl (0.0-1.0)
[2020-09-09 06:44] LABS: BASO % 0.5 % (0.0-1.0); EOS # 0.1 10*3/uL (0.0-0.4); EOS % 1.5 % (1.0-4.0); HEMATOCRIT 34.1 % (37.0-47.0); LYMPH # 0.5 10*3/uL (1.3-4.4); LYMPH % 5.4 % (27.0-41.0); MEAN CELL VOLUME 92.9 fl (81.0-99.0); MEAN CORPUSCULAR HGB 29.7 pg (27.0-31.0); MEAN PLATELET VOLUME 9.9 fl (9.6-12.3); MONO # 0.3 10*3/uL (0.1-1.0); MONO % 3.6 % (3.0-9.0); NEUT # 7.5 10*3/uL (2.3-7.9); NEUT % 88.6 % (47.0-73.0); PLATELET COUNT AUTOMATED 273 10*3/uL (130-400); RED BLOOD COUNT 3.67 10*6/uL (4.10-5.10); RED CELL DISTRI WIDTH 14.6 % (0-14.5); WHITE BLOOD COUNT 8.5 10*3/uL (4.8-10.8)
[2020-09-09 06:54] LABS: BACTERIA 2+; RBC 21-30 rbc/hpf (0-2); WBC TNTC wbc/hpf (0-5)
[2020-09-09 06:55] LABS: INTERNATIONAL NORM RATIO 0.9 (2.0-3.5)
[2020-09-09 07:01] LABS: ALBUMIN 3.7 gm/dl (3.1-4.5); ALKALINE PHOSPHATASE 72 U/L (45-117); BUN 22 mg/dl (7-24); CHLORIDE 107 mmol/L (98-107); CREATININE 1.03 mg/dL (0.55-1.02); POTASSIUM 4.2 mmol/L (3.5-5.1); SGOT/AST 10 IU/L (3-35); SGPT/ALT 14 U/L (12-78); SODIUM 141 mmol/L (136-145); TOTAL PROTEIN 7.6 gm/dL (6.4-8.2)
[2020-09-09 07:05] LABS: TROPONIN I < 0.015 ng/ml (<0.045)
[2020-09-09] MEDS ORDERED: CHOLECALCIFEROL PO (09:12)
[2020-09-09] MEDS ORDERED: TYLENOL325 M1 PO (09:13)
[2020-09-09] MEDS ORDERED: MIRALAX17 GM PO (09:14)
[2020-09-09] MEDS ORDERED: MIRTAZAPINE15 M2 PO (09:16)
[2020-09-10] VITALS: BP 109/56
[2020-09-10 06:00] LABS: ALBUMIN 2.9 gm/dl (3.1-4.5); ALKALINE PHOSPHATASE 60 U/L (45-117); BUN 22 mg/dl (7-24); CHLORIDE 110 mmol/L (98-107); CREATININE 0.74 mg/dL (0.55-1.02); FREE T4 1.11 ng/dl (0.76-1.46); POTASSIUM 3.6 mmol/L (3.5-5.1); SGOT/AST 8 IU/L (3-35); SGPT/ALT 12 U/L (12-78); SODIUM 143 mmol/L (136-145); TOTAL PROTEIN 6.6 gm/dL (6.4-8.2)
[2020-09-10 06:12] LABS: BASO # 0.1 10*3/uL (0.0-0.1); BASO % 0.9 % (0.0-1.0); EOS # 0.3 10*3/uL (0.0-0.4); EOS % 4.9 % (1.0-4.0); HEMATOCRIT 31.3 % (37.0-47.0); LYMPH % 14.8 % (27.0-41.0); MEAN CELL VOLUME 93.7 fl (81.0-99.0); MEAN CORPUSCULAR HGB 29.6 pg (27.0-31.0); MEAN CORPUSCULAR HGB CONC 31.6 g/dl (33.0-37.0); MEAN PLATELET VOLUME 10.7 fl (9.6-12.3); MONO # 0.8 10*3/uL (0.1-1.0); MONO % 12.5 % (3.0-9.0); NEUT # 4.3 10*3/uL (2.3-7.9); NEUT % 66.7 % (47.0-73.0); PLATELET COUNT AUTOMATED 251 10*3/uL (130-400); RED BLOOD COUNT 3.34 10*6/uL (4.10-5.10); RED CELL DISTRI WIDTH 14.6 % (0-14.5); WHITE BLOOD COUNT 6.5 10*3/uL (4.8-10.8)
[2020-09-10 06:50] LABS: VITAMIN D, 25-HYDROXY 74.4 ng/mL (30-100)
[2020-09-10 12:00] VITALS: BP 155/62
[2020-09-10 16:00] VITALS: BP 139/71
[2020-09-10 20:00] VITALS: BP 148/59
[2020-09-11] VITALS: BP 142/94
[2020-09-11 06:45] LABS: BASO % 0.7 % (0.0-1.0); EOS # 0.5 10*3/uL (0.0-0.4); HEMATOCRIT 33.5 % (37.0-47.0); LYMPH # 0.9 10*3/uL (1.3-4.4); LYMPH % 15.4 % (27.0-41.0); MEAN CELL VOLUME 91.8 fl (81.0-99.0); MEAN CORPUSCULAR HGB 29.9 pg (27.0-31.0); MEAN CORPUSCULAR HGB CONC 32.5 g/dl (33.0-37.0); MONO # 0.8 10*3/uL (0.1-1.0); MONO % 13.1 % (3.0-9.0); NEUT # 3.6 10*3/uL (2.3-7.9); NEUT % 61.5 % (47.0-73.0); PLATELET COUNT AUTOMATED 259 10*3/uL (130-400); RED BLOOD COUNT 3.65 10*6/uL (4.10-5.10); RED CELL DISTRI WIDTH 14.3 % (0-14.5); WHITE BLOOD COUNT 5.9 10*3/uL (4.8-10.8)
[2020-09-11 07:25] LABS: BUN 22 mg/dl (7-24); CHLORIDE 107 mmol/L (98-107); SODIUM 140 mmol/L (136-145)
[2020-09-11 07:27] LABS: CREATININE 0.75 mg/dL (0.55-1.02)
[2020-09-11 08:00] VITALS: BP 131/90
[2020-09-11 12:00] VITALS: BP 132/88
[2020-09-11] MEDS ORDERED: CEFDINIR300 MG PO (14:25)
[2020-09-11 16:00] VITALS: BP 136/74
== END 2020-09-11 17:00 | DRG 884 ==
LOC: ED 05:53 → EDHOLD 07:47 → 5E 07:47
PROVIDERS: Emergency Medicine; Internal Medicine; ADMIT Internal Medicine; ATTEND Internal Medicine
DX: R54 Age-related physical debility (principal); N17.0 Acute kidney failure with tubular necrosis; N39.0 Urinary tract infection, site not specified; R78.81 Bacteremia; I48.91 Unspecified atrial fibrillation; E11.65 Type 2 diabetes mellitus with hyperglycemia; K21.9 Gastro-esophageal reflux disease without esophagitis; Z66 Do not resuscitate; Z51.5 Encounter for palliative care; M54.9 Dorsalgia, unspecified; G89.29 Other chronic pain; I10 Essential (primary) hypertension; E78.2 Mixed hyperlipidemia; R00.0 Tachycardia, unspecified; D64.9 Anemia, unspecified; E86.0 Dehydration; E66.9 Obesity, unspecified; F32.9 Major depressive disorder, single episode, unspecified; B96.20 Unspecified Escherichia coli [E. coli] as the cause of diseases classified elsewhere; Z83.3 Family history of diabetes mellitus; Z68.31 Body mass index [BMI] 31.0-31.9, adult; Z80.9 Family history of malignant neoplasm, unspecified; Z82.0 Family history of epilepsy and other diseases of the nervous system; Z79.82 Long term (current) use of aspirin; Z79.84 Long term (current) use of oral hypoglycemic drugs; Z79.899 Other long term (current) drug therapy; Z88.0 Allergy status to penicillin; Z88.2 Allergy status to sulfonamides; Z20.822 Contact with and (suspected) exposure to COVID-19

== ENCOUNTER 2021-02-09 03:26 | Emergency (ER) | payer OTHER ==
[~2021-02-09] VITALS: Ht 165.1 cm; Wt 72.6 kg
[~2021-02-09 03:26] MED LIST changes: +CEFDINIR300 MG PO; +CHOLECALCIFEROL PO; +MIRALAX17 GM PO; +TYLENOL325 M1 PO
[2021-02-09 03:29] VITALS: BP 162/96
== END 2021-02-09 05:05 ==
LOC: ED 03:26
DX: S80.00XA Contusion of unspecified knee, initial encounter (principal); M17.0 Bilateral primary osteoarthritis of knee; Z88.0 Allergy status to penicillin; Z88.2 Allergy status to sulfonamides; Z79.2 Long term (current) use of antibiotics; Z79.82 Long term (current) use of aspirin; Z90.89 Acquired absence of other organs; Z98.61 Coronary angioplasty status; Z98.890 Other specified postprocedural states; W13.3XXA Fall through floor, initial encounter; Y93.89 Activity, other specified; Y92.89 Other specified places as the place of occurrence of the external cause; Y99.8 Other external cause status